=== PATIENT | female | born 2000 | race Caucasian/White ===

== ENCOUNTER 2021-07-19 20:59 | Emergency (ER) | payer OTHER ==
[2021-07-19] MEDS ORDERED: Lactated Ringers 1,000 ML IV ONE (21:44)
[2021-07-19] MEDS ORDERED: Ketorolac 15 MG/ML SDV IVPUSH ONE (21:44)
[2021-07-19] MEDS ORDERED: Metoclopramide 10 MG/2 ML SDV IVPUSH ONE (21:44)
[2021-07-19] MEDS ORDERED: diphenhydrAMINE 50 MG/ML SDV IVPUSH ONE (21:44)
[2021-07-19 22:29] LABS: CORONAVIRUS COVID-19 NAA NEGATIVE (NEGATIVE)
== END 2021-07-19 23:12 | disposition home or self-care (01) ==
LOC: JD.ED 20:59
DX: G43.809 Other migraine, not intractable, without status migrainosus (principal); R20.2 Paresthesia of skin; Z20.822 Contact with and (suspected) exposure to COVID-19
CPT/HCPCS: 0240U; 36415; 80053; 83735; 85025; 96374; 96375; 99284; J1200; J1885; J2765; J7120